=== PATIENT | female | born 1970 | race Caucasian/White ===

== ENCOUNTER 2019-03-25 12:50 | Day surgery (SDC) | payer MEDICAID ==
[2019-03-24 14:16] LABS: BASOPHILS # (AUTO) 0.1 X10'3 (0-0.2); EOSINOPHILS # (AUTO) 0.3 X10'3 (0-0.9); LYMPHOCYTES # (AUTO) 1.8 X10'3 (1.1-4.8); LYMPHOCYTES % (AUTO) 32.3 % (21-51); MEAN CORPUSCULAR HEMOGLOBIN 26.6 PG (27.0-31.0); MEAN CORPUSCULAR HGB CONC 32.7 g/dL (33.0-36.5); MEAN CORPUSCULAR VOLUME 81.4 FL (78-98); MEAN PLATELET VOLUME 8.7 FL (7.4-10.4); MONOCYTES # (AUTO) 0.5 X10'3 (0-0.9); MONOCYTES % (AUTO) 8.4 % (2-12); NEUTROPHILS % (AUTO) 53.3 % (42-75); PRE OP PLATELET COUNT 260 X10'3 (140-440); RED BLOOD COUNT 4.05 X10'6 (4.20-5.60); RED CELL DISTRIBUTION WIDTH 18.8 % (11.5-14.5)
[2019-03-24 14:21] LABS: CLARITY,URINE CLOUDY (Clear); COLOR,URINE YELLOW (Yellow); GLUCOSE, URINE NEGATIVE (Neg); KETONES,URINE NEGATIVE (Neg); LEUKOCYTE ESTERASE ,URINE NEGATIVE (Neg); NITRITES, URINE NEGATIVE (Neg); OCCULT BLOOD,URINE LARGE (Neg); PROTEIN,URINE NEGATIVE (Neg); UROBILINOGEN,URINE 0.2 E.U/dL (0.2-1.0)
[2019-03-24 14:25] LABS: PRE OP PROTIME 10.3 SECONDS (9.0-12.0)
[2019-03-24 14:29] LABS: UA COLLECTION TYPE CLN CATCH MIDSTREAM
[2019-03-24 14:29] LABS: ALBUMIN 3.5 G/DL (3.4-5.0); ALBUMIN/GLOBULIN RATIO 1.1 (1.1-1.5); ALKALINE PHOSPHATASE 37 IU/L (46-116); BLOOD UREA NITROGEN 12 MG/DL (7-18); BUN/CREATININE RATIO 11.8 (6.6-38.0); CALCIUM 8.2 MG/DL (8.5-10.1); CHLORIDE 107 MMOL/L (99-107); CREATININE 1.02 MG/DL (0.40-0.90); PRE OP ALT 26 U/L (30-65); PRE OP ANION GAP 5 (8-16); PRE OP AST 20 U/L (10-37); PRE OP BILIRUB, TOTAL 0.2 MG/DL (0.0-1.0); PRE OP GLUCOSE 124 MG/DL (70-104); PRE OP POTASSIUM 3.6 MMOL/L (3.4-5.1); PRE OP SODIUM 141 MMOL/L (135-145); TOTAL CARBON DIOXIDE 28.9 MMOL/L (24-32); TOTAL PROTEIN 6.7 G/DL (6.4-8.2); eGFR 58 ML/MIN
[2019-03-24 14:31] LABS: HYALINE CASTS 0-3 /LPF (NEGATIVE); MUCUS STRANDS MODERATE /LPF (Neg); SQUAMOUS EPITHELIAL CELL,UR MODERATE /LPF (FEW)
[2019-03-24 14:32] LABS: BACTERIA,URINE FEW /HPF (Neg); WBC,URINE 0-4 /HPF (0-4)
[2019-03-24 14:34] LABS: PRE OP HEMOGLOBIN 10.8 g/dL (12.0-16.0)
[~2019-03-25] VITALS: Ht 172.7 cm; Wt 74.0 kg
[~2019-03-25 12:50] MED LIST: NO HOME MEDS; cefazolin/dext.iso 2gm/100ml 100 ML IV ONE; famotidine 10mg tablet PO ONE; ringers solution, lacted 1,000 ML IV SCH
[2019-03-25 15:01] VITALS: BP 128/88
[2019-03-25 15:02] VITALS: BP 128/88
[2019-03-25 15:03] VITALS: BP 128/88
--- NOTE | 2019-03-25 16:00 | NUR ---
SURGERY CANCELLED BY DR JOY HE WAS CALLED AWAY EMERGENTLY. PATIENT MADE AWARE AND INFORMED TO CALL DR CHILDS OFFICE AND RESCHEDULE. PIV D/CD CATHETER TIP INTACT. PATIENT ALERT AND ORIENTED, AMBULATED TO PERSONAL VEHICLE WITH ALL BELONGINGS.
== END 2019-03-25 16:07 | disposition home or self-care (01) ==
LOC: PAS 12:50
PROVIDERS: ATTEND Surgery
DX: D49.89 Neoplasm of unspecified behavior of other specified sites (principal); Z53.8 Procedure and treatment not carried out for other reasons; F17.210 Nicotine dependence, cigarettes, uncomplicated; Z01.810 Encounter for preprocedural cardiovascular examination
CPT/HCPCS: 36415; 80053; 81001; 82948; 85025; 85610; 85730; 93005; J7120

== ENCOUNTER 2019-05-16 05:50 | Day surgery (SDC) | payer MEDICAID ==
[2019-05-12 14:22] LABS: BASOPHILS # (AUTO) 0.1 X10'3 (0-0.2); BASOPHILS % (AUTO) 0.8 % (0-1); CLARITY,URINE SLIGHTLY CLOUDY (Clear); COLOR,URINE YELLOW (Yellow); EOSINOPHILS # (AUTO) 0.1 X10'3 (0-0.9); EOSINOPHILS % (AUTO) 2.2 % (0-6); GLUCOSE, URINE NEGATIVE (Neg); KETONES,URINE NEGATIVE (Neg); LEUKOCYTE ESTERASE ,URINE NEGATIVE (Neg); LYMPHOCYTES # (AUTO) 2.1 X10'3 (1.1-4.8); LYMPHOCYTES % (AUTO) 33.1 % (21-51); MEAN CORPUSCULAR HEMOGLOBIN 26.8 PG (27.0-31.0); MEAN CORPUSCULAR VOLUME 81.3 FL (78-98); MONOCYTES # (AUTO) 0.5 X10'3 (0-0.9); MONOCYTES % (AUTO) 8.2 % (2-12); NEUTROPHILS # (AUTO) 3.6 X10'3 (1.8-7.7); NEUTROPHILS % (AUTO) 55.7 % (42-75); NITRITES, URINE NEGATIVE (Neg); OCCULT BLOOD,URINE LARGE (Neg); PH,URINE 5.5 (4.8-8.0); PRE OP HEMATOCRIT 33.1 % (35.0-45.0); PRE OP PLATELET COUNT 264 X10'3 (140-440); PROTEIN,URINE NEGATIVE (Neg); RED BLOOD COUNT 4.07 X10'6 (4.20-5.60); RED CELL DISTRIBUTION WIDTH 18.7 % (11.5-14.5); UROBILINOGEN,URINE 0.2 E.U/dL (0.2-1.0)
[2019-05-12 14:24] LABS: PRE OP HEMOGLOBIN 10.9 g/dL (12.0-16.0); UA COLLECTION TYPE CLN CATCH MIDSTREAM
[2019-05-12 14:32] LABS: BACTERIA,URINE NONE SEEN /HPF (Neg); HYALINE CASTS 0-3 /LPF (NEGATIVE); MUCUS STRANDS FEW /LPF (Neg); PRE OP PROTIME 10.7 SECONDS (9.0-12.0); RBC,URINE 50-100 /HPF (0-2); SQUAMOUS EPITHELIAL CELL,UR MODERATE /LPF (FEW); WBC,URINE 0-4 /HPF (0-4)
[2019-05-12 14:34] LABS: ALBUMIN 3.7 G/DL (3.4-5.0); ALBUMIN/GLOBULIN RATIO 1.2 (1.1-1.5); ALKALINE PHOSPHATASE 35 IU/L (46-116); BLOOD UREA NITROGEN 11 MG/DL (7-18); BUN/CREATININE RATIO 12.2 (6.6-38.0); CALCIUM 8.7 MG/DL (8.5-10.1); CHLORIDE 106 MMOL/L (99-107); PRE OP ALT 26 U/L (30-65); PRE OP ANION GAP 8 (8-16); PRE OP AST 23 U/L (10-37); PRE OP BILIRUB, TOTAL 0.3 MG/DL (0.0-1.0); PRE OP GLUCOSE 105 MG/DL (70-104); PRE OP POTASSIUM 3.5 MMOL/L (3.4-5.1); PRE OP SODIUM 142 MMOL/L (135-145); TOTAL PROTEIN 6.7 G/DL (6.4-8.2); eGFR 67 ML/MIN
[2019-05-12 14:44] LABS: HCG SERUM QL NEGATIVE
[2019-05-12 15:08] LABS: ANISOCYTOSIS 2+; PLATELET ESTIMATE NORMAL
[2019-05-12 15:10] LABS: LARGE PLATELETS FEW
[~2019-05-16] VITALS: Ht 172.7 cm; Wt 72.4 kg
[2019-05-16] VITALS (9 sets, daily range): BP systolic 125–137; BP diastolic 75–96
[~2019-05-16 05:50] MED LIST changes: +B COMPLEX; +BIOTIN; +CALCIUM; +COQ10; +D3; +MAGNESIUM; -NO HOME MEDS; +POTASSIUM; +[UNRECOGNIZED DRUG - OTHER]; -cefazolin/dext.iso 2gm/100ml 100 ML IV ONE; +cefazolin/dext.iso 2gm/50ml 50 ML IV ONE; -famotidine 10mg tablet PO ONE; +famotidine 20mg tablet PO ONE
[2019-05-16] MEDS ORDERED: BUPIVAcaine/PF 2.5 mg/ml (0.25%) 30ml vial ONE (06:44)
[2019-05-16] MEDS ORDERED: ceFAZolin 1000mg inj ONE (06:44)
[2019-05-16] MEDS ORDERED: ringers solution, lacted 1,000 ML IV SCH (08:42)
[2019-05-16] MEDS ORDERED: ketorolac trometh. 30mg/ml inj. IV ONE (08:45)
[2019-05-16] MEDS ORDERED: ondansetron/PF 4mg/2ml inj IV PRN (08:45)
[2019-05-16] MEDS ORDERED: acetaminophen 1,000mg/100ml IV 100 ML IV PRN (08:45)
[2019-05-16] MEDS ORDERED: meperidine/PF 25mg/ml syringe IV PRN ×3 (08:45)
[2019-05-16] MEDS ORDERED: morphine 4 MG/ML inj SYRINge IV PRN (08:45)
[2019-05-16] MEDS ORDERED: proCHLORperazine 10 MG/2 ml inj IV PRN (08:45)
[2019-05-16] MEDS ORDERED: morphine 2 MG/ML inj. syringe IV PRN (08:45)
[2019-05-16] MEDS ORDERED: rocuronium 10mg/ml inj IV ONE (09:26)
[2019-05-16] MEDS ORDERED: sevoflurane 250ml liquid IH ONE (09:26)
[2019-05-16] MEDS ORDERED: acetaminophen 1000 MG/100ml vial IV ONE (09:26)
[2019-05-16] MEDS ORDERED: midazolam 2 mg/2 ml injection ONE (09:30)
[2019-05-16] MEDS ORDERED: fentaNYL/PF 50MCG/1 ML 2ML syringe ONE (09:30)
[2019-05-16] MEDS ORDERED: LIDOcaine 2% 5ml jelly ONE (09:48)
[2019-05-16] MEDS ORDERED: LIDOcaine 2% (20mg/ml) 5ml vial ONE (09:48)
[2019-05-16] MEDS ORDERED: propofol inj 20 ML IV ONE ×2 (09:48→10:08)
[2019-05-16] MEDS ORDERED: dexamethasone sod phosphate 4mg/ml inj. ONE (09:50)
[2019-05-16] MEDS ORDERED: ondansetron/PF 4mg/2ml inj ONE (09:50)
[2019-05-16] MEDS ORDERED: glycopyrrolate 0.2mg/ml inj ONE (10:26)
[2019-05-16] MEDS ORDERED: neostigmine methylsulfate 1 MG/ML 10ml vial ONE (10:27)
[2019-05-16] MEDS ORDERED: BUPIVAcaine/PF 2.5mg/ml (0.25%) 10ml vial ONE (10:28)
[2019-05-16] MEDS ORDERED: ePHEDrine 50MG/ML INJ. ONE (10:29)
--- NOTE | 2019-05-16 10:56 | NUR ---
Received from OR via [facility], accompanied by Anesthesiologist DR FLETCHER and report given by Anesthesiologist. PT DROWSY, DENIES PAIN, MEDIPORE TAPE COVERING INCISION/DRSG TO RIGHT UPPER ARM, MIDDLE UPPER BACK, CDI. Addendum: 05/16/19 at 1109 by Teresa Soria RN Amended: Links added.
--- NOTE | 2019-05-16 12:16 | NUR ---
D/C INSTRUCTIONS GIVEN AND GONE OVER W/PT WHO VERBALIZED UNDERSTANDING, PT D/CD TO HOME VIA W/C TO PRIVATE VEHICLE W/O INCIDENT. Addendum: 05/16/19 at 1304 by Teresa Soria RN Amended: Links added.
== END 2019-05-16 12:16 | disposition home or self-care (01) ==
LOC: PAS 05:50
PROVIDERS: ATTEND Surgery
DX: D17.21 Benign lipomatous neoplasm of skin and subcutaneous tissue of right arm (principal); L98.8 Other specified disorders of the skin and subcutaneous tissue; L82.1 Other seborrheic keratosis; Z79.899 Other long term (current) drug therapy; Z79.01 Long term (current) use of anticoagulants; R20.8 Other disturbances of skin sensation; Z87.891 Personal history of nicotine dependence
CPT/HCPCS: 11401; 23076; 36415; 80053; 81001; 82948; 84703; 85025; 85610; 85730; J0131; J0690; J1100; J2001; J2250; J2405; J2704; J2710; J3010; J3490; J7120; A4618; A6449; A7000